=== PATIENT | male | born 1980 | race African-American/Black ===

== ENCOUNTER 2019-04-16 11:38 | Emergency (ER) | payer OTHER ==
[2019-04-16] MEDS ORDERED: TETRACAINE 0.5% OPHTH SOLN 2 ML BOTTLE OU ONE (11:40)
--- NOTE | 2019-04-16 11:40 | PDOC ---
History of Present Illness - General Chief Complaint: Redness To Affected Area Stated Complaint: LEFT EYE RED Time Seen by Provider: 04/16/19 11:39 - History of Present Illness Initial Comments: 04/16/19 13:47 Chief complaint: Itching and swelling left eye History of present illness: After cleaning up a barbecue, developed itching and redness of the right thigh, primarily the upper eyelid. This occurred 2 days ago. He has been taking Benadryl without relief. There is no change of vision. There is no drainage or discharge. Review of systems: No fever/chills, URI symptoms, sore throat, cough, chest pain , shortness of breath, abdominal pain, nausea, vomiting, diarrhea, visual or focal neurologic symptoms, unsteadiness of gait. Past medical history: Thyroidectomy for Graves' disease. Takes Synthroid. Bilateral cataract surgery for "poor vision". No history of diabetes Social/family history reviewed and noncontributory Physical exam: Alert and oriented well-developed well-nourished no acute distress cheerful and cooperative Afebrile, vital signs normal Visual acuity 20/40, 20/40. Mild erythema and edema of the left upper eyelid, and to a minor degree the left lower eyelid. Conjunctiva is not injected. Pupil is round and reactive to light and accommodation. Anterior chamber is clear. Fundus is visualized and benign. Staining with fluorescein reveals clear cornea, no sign of foreign body, abrasions, or ulcerations. ENT clear Neck supple without bruit mass or nodes Chest clear CV regular without murmur or gallop Abdomen benign Skin clear, no rash, adequate turgor and mucous membranes Impression: Probable ALLERGIC reaction, with mild erythema and swelling of the left upper and lower eyelids. 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 Fully ambulatory and no pain or other distress, normal vision, at discharge. Past History - Past Medical History Allergies/Adverse Reactions: Allergies Allergy/AdvReac Type Severity Reaction Status Date / Time No Known Allergies Allergy Verified 04/16/19 11:39 Home Medications: Ambulatory Orders Levothyroxine Sodium [Synthroid] 137 mcg PO DAILY 04/16/19 Olopatadine HCl [Pazeo] 1 drop OS DAILY #1 bottle 04/16/19 - Suicide/Smoking/Psychosocial Hx Smoking Status: No Smoking History: Never smoked Number of Cigarettes Smoked Daily: 0 *DC/Admit/Observation/Transfer Diagnosis at time of Disposition: Allergic conjunctivitis Qualifiers: Laterality: left Qualified Code(s): H10.12 - Acute atopic conjunctivitis, left eye - Discharge Dispostion Disposition: HOME Condition at time of disposition: Stable Decision to Admit order: No - Prescriptions Prescriptions: Olopatadine HCl [Pazeo] 1 drop OS DAILY #1 bottle - Referrals Referrals: Damon Reyes MD [Staff Physician] - 24 hours - Patient Instructions Additional Instructions: Cool compresses. Eyedrops as directed. See eye doctor in 1-2 days if no improvement or if there is increased redness or blurred vision. - Post Discharge Activity
[2019-04-16] MEDS ORDERED: FLUORESCEIN NA 1 EA STRIP OU ONE (11:41)
[2019-04-16 11:47] VITALS: BP 137/96; PULSE 80; TEMP 98.1; BMI 25.8
[2019-04-16] MEDS ORDERED: TETRACAINE 0.5% OPHTH SOLN 2 ML BOTTLE ONE (11:51)
[2019-04-16] MEDS ORDERED: FLUORESCEIN NA 1 EA STRIP ONE (11:51)
== END 2019-04-16 12:35 | disposition home or self-care (01) ==
LOC: FER 11:38
DX: H10.12 Acute atopic conjunctivitis, left eye (principal)
CPT/HCPCS: 99281-25

== ENCOUNTER 2019-09-27 11:34 | Emergency (ER) | payer OTHER ==
[2019-09-27 11:39] VITALS: BP 144/80; TEMP 98; BMI 25.8
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
[2019-09-27] MEDS ORDERED: KETOROLAC TROMETHAMINE 60 MG/2 ML VIAL IM ONE (12:43)
[2019-09-27] MEDS ORDERED: KETOROLAC TROMETHAMINE 60 MG/2 ML VIAL ONE (12:45)
[2019-09-27 13:33] VITALS: PULSE 93
== END 2019-09-27 13:58 | disposition home or self-care (01) ==
LOC: FER 11:34
PROC: 3E0233Z Introduction of Anti-inflammatory into Muscle, Percutaneous Approach (ICD-10-PCS; principal; 2019-09-27)
DX: M25.511 Pain in right shoulder (principal); M79.601 Pain in right arm; M54.5 Low back pain; E03.9 Hypothyroidism, unspecified; V43.52XA Car driver injured in collision with other type car in traffic accident, initial encounter; Y93.89 Activity, other specified; Y92.415 Exit ramp or entrance ramp of street or highway as the place of occurrence of the external cause
CPT/HCPCS: 72125-TC; 73030-TC-RT-FY; 99283-25

== ENCOUNTER 2020-06-11 21:00 | Emergency (ER) | payer OTHER ==
[2020-06-11 21:08] VITALS: BP 153/104; PULSE 78; TEMP 99.6; BMI 25.9
[2020-06-11] MEDS ORDERED: morphine CARPU-JECT 4 MG/1 ML DISP.SYRIN IM ONE (21:44)
--- NOTE | 2020-06-11 21:46 | PDOC ---
Documentation entered by Lloyd Sotelo SCRIBE, acting as scribe for Jasmeet Najera MD. Jasmeet Najera MD: This documentation has been prepared by the Ashleigh frias Angel, SCRIBE, under my direction and personally reviewed by me in its entirety. I confirm that the documentation accurately reflects all work, treatment, procedures, and medical decision making performed by me. History of Present Illness - General Chief Complaint: Toothache Stated Complaint: DENTAL PAIN Time Seen by Provider: 06/11/20 21:02 History Source: Patient Exam Limitations: No Limitations - History of Present Illness Initial Comments: 06/11/20 21:47 39 M with no PMH presents to ED with dental pain. Pt states he had 2 wisdom teeth pulled today, approx 3 hours ago. Pt states that he went to the pharmacy afterwards but they were unable to fill his prescription for pain medication. He took 2 excedrin instead but states it did not help. He presents to ED now for pain control. Denies any significant bleeding. No other symptoms. Past History - Medical History Allergies/Adverse Reactions: Allergies Allergy/AdvReac Type Severity Reaction Status Date / Time No Known Allergies Allergy Verified 09/27/19 11:35 Home Medications: Ambulatory Orders Levothyroxine Sodium [Synthroid] 137 mcg PO DAILY 04/16/19 COPD: No Thyroid Disease: Yes - Psycho-Social/Smoking History Smoking Status: No Smoking History: Never smoked Have you smoked in the past 12 months: No Number of Cigarettes Smoked Daily: 0 Review of Systems - Review of Systems Comments:: 06/11/20 21:48 "GENERAL/CONSTITUTIONAL: No fever or chills. No weakness. HEAD, EYES, EARS, NOSE AND THROAT: + dental pain, No change in vision. No ear pain or discharge. No sore throat. CARDIOVASCULAR: No chest pain, no shortness of breath, no loss of consciousness RESPIRATORY: No cough, wheezing, or hemoptysis. GASTROINTESTINAL: No nausea, vomiting, diarrhea or constipation. GENITOURINARY: No dysuria, frequency, or change in urination. MUSCULOSKELETAL: No joint or muscle swelling or pain. No neck or back pain. SKIN: No rash NEUROLOGIC: No vertigo, no change in strength/sensation. ENDOCRINE: No increased thirst. No abnormal weight change. HEMATOLOGIC/LYMPHATIC: No anemia, easy bleeding, or history of blood clots. ALLERGIC/IMMUNOLOGIC: No hives or skin allergy. *Physical Exam - Physical Exam 06/11/20 21:49 "GENERAL: Awake, alert, and fully oriented, in no acute distress. HEAD: No signs of trauma EYES: PERRLA, EOMI, sclera anicteric, conjunctiva clear ENT: + wisdom teeth sockets with mild oozing, no active bleed, Auricles normal inspection, hearing grossly normal, nares patent, oropharynx clear without exudates. Moist mucosa NECK: Nontender, no stepoffs, Normal ROM, supple, no lymphadenopathy, JVD, or masses LUNGS: Breath sounds equal, clear to auscultation bilaterally. No wheezes, and no crackles HEART: Regular rate and rhythm, normal S1 and S2, no murmurs, rubs or gallops ABDOMEN: Soft, nontender, normoactive bowel sounds. No guarding, no rebound. No masses EXTREMITIES: Normal range of motion, no edema. No clubbing or cyanosis. No cords, erythema, or tenderness NEUROLOGICAL: Cranial nerves II through XII intact. 5/5 strength and sensation in all extremities, Normal speech, normal gait, normal cerebellar function SKIN: Warm, Dry, normal turgor, no rashes or lesions noted. Medical Decision Making - Medical Decision Making 06/11/20 21:49 39 M here for pain control after wisdom teeth were extracted 3 hours ago. - IM morphine 06/11/20 23:10 Pt reassessed - pain well controlled Pt's called pharmacy and confirmed prescriptions are ready. Pt is well appearing, with normal vitals. Clinically stable for DC at this time. I discussed the physical exam findings, ancillary test results and final diagnoses with the patient. I answered all of the patient's questions. The patient was satisfied with the care received and felt comfortable with the disch arge plan and treatment plan. The patient agrees to follow up with the primary care physician within 24-72 hours. Discharge - Discharge Information Problems reviewed: Yes Clinical Impression/Diagnosis: S/P tooth extraction, Pain, dental, S/P wisdom tooth extraction Condition: Stable Disposition: HOME - Follow up/Referral - Patient Discharge Instructions Patient Printed Discharge Instructions: DI on Tooth Extraction Additional Instructions: supervisor shearing your prescriptions tonight. Call your dentist tomorrow to schedule follow up within 1 week. If you experience worsening pain, swelling, bleeding, fevers, or any other concerning symptoms, return to the ER immediately. - Post Discharge Activity
[2020-06-11] MEDS ORDERED: morphine SULFATE 4 MG/ML VIAL ONE (21:47)
== END 2020-06-11 23:22 | disposition home or self-care (01) ==
LOC: FER 21:00
PROC: 3E023NZ Introduction of Analgesics, Hypnotics, Sedatives into Muscle, Percutaneous Approach (ICD-10-PCS; principal; 2020-06-11)
DX: K08.89 Other specified disorders of teeth and supporting structures (principal)
CPT/HCPCS: 99284-25